=== PATIENT | male | born 1995 | race Hispanic/Latino ===

== ENCOUNTER 2019-12-10 20:07 | Emergency (ER) | payer OTHER, SELFPAY ==
[2019-12-10 20:13] VITALS: BP 124/59; PULSE 92; RESP 20; TEMP 36.8; O2SAT 99
--- NOTE | 2019-12-10 20:29 | ED_ITS ---
HPI - Fever <LUZ ELENA Shi - Last Filed: 12/10/19 21:28> General Chief Complaint: Fever Stated Complaint: fever, sore throat, short of breath Time Seen by Provider: 12/10/19 20:13 Source: patient Mode of arrival: Ambulatory History of Present Illness HPI Narrative: 24yo male presents to the walk-in clinic complaining of a sore throat starting 5 days ago, he then developed a dry cough with shortness of 3 da ys ago, and yesterday he developed a fever as high 101 F. he states today he woke up and his fever was 100.7F, he has taken some Tylenol which has helped. 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 He did have an episode of vomiting that started last night along with diarrhea. He took Imodium which has helped, he has been able to sip water and quita kleber. Patient denies any abdominal pain, rhinorrhea, dizziness, headaches, chest pain, any other concerns. He denies any asthma or any other comorbidities, patient denies allergies. Related Data Previous Rx's Medication Instructions Recorded ondansetron 4 mg PO Q8H #10 tab 12/10/19 Allergies Allergy/AdvReac Type Severity Reaction Status Date / Time No Known Drug Allergies Allergy Verified 12/10/19 20:31 Review of Systems <LUZ ELENA Shi - Last Filed: 12/10/19 21:28> Review of Systems Narrative: REVIEW OF SYSTEMS: GENERAL: Reports fevers, see HPI. HENT: No head trauma or hearing loss. EYES: No loss of vision, double vision, eye pain, irritation or discharge. CARDIOVASCULAR: No chest pain or syncope. RESPIRATORY: Reports dry cough, see HPI. GASTROINTESTINAL: Reports nausea and vomiting and diarrhea, see HPI. MUSCULOSKELETAL: No weakness or injury. INTEGUMENTARY: No rash, lesions, or pruritus. NEURO: No memory loss, or confusion. Patient History <LUZ ELENA Shi - Last Filed: 12/10/19 21:28> Medical History No significant medical problems (Acute) Social History Smoking Status: Never smoker Smoking Status: Never smoker Exam <LUZ ELENA Shi - Last Filed: 12/10/19 21:28> Initial Vital Signs Initial Vital Signs: Vital Signs Temperature 98.2 F 12/10/19 20:13 Pulse Rate 92 H 12/10/19 20:13 Respiratory Rate 20 12/10/19 20:13 Blood Pressure 124/59 L 12/10/19 20:13 Pulse Oximetry 99 12/10/19 20:13 PHYSICAL EXAMINATION: GENERAL: Well groomed, alert, and cooperative. Answers questions promptly and appropriately. Vital signs noted. HENT: Normocephalic, atraumatic. Ear canals patent. TMs intact without mucus or erythema. Oropharynx , slight erythema, no exudate Tonsils are not present. EYES: Conjunctiva pink, sclera white, no periorbital swelling. No discharge. CHEST: Normal to inspection and without deformities. CARDIOVASCULAR: S1 and S2 sounds normal. Regular rate and rhythm, no murmurs, clicks, or bruits. RESPIRATORY: Normal respiratory rate, trachea midline, airway patent. No stridor, nasal flaring or accessory muscle use. Able to speak in full sentences. Lungs are clear in all chin without wheeze, rhonchi, or crackles. Dry cough noted occasionally throughout examination. MUSCULOSKELETAL: Normal gait and coordination. Equal tone and mass bilaterally. ABD: Abdomen soft and nontender. No masses palpated. EXTREMITIES: Moves all extremities. SKIN: Warm, dry, soft, appropriate color for ethnicity. No lesions, rashes, or wounds to visualized areas. NEURO: Alert and Oriented X 3. Good coordination. No ataxia or cognitive issues. PSYCH: Appropriate affect and mood. <Roxy England DO - Last Filed: 12/11/19 05:33> Initial Vital Signs Initial Vital Signs: Vital Signs Temperature 98.2 F 12/10/19 20:13 Pulse Rate 92 H 12/10/19 20:13 Respiratory Rate 20 12/10/19 20:13 Blood Pressure 124/59 L 12/10/19 20:13 Pulse Oximetry 99 12/10/19 20:13 Course <LUZ ELENA Shi - Last Filed: 12/10/19 21:28> Course Course Narrative: Patient was given ondansetron, p.o. trial was initiated and patient was given ibuprofen. Patient was able to drink fluids without vomiting, states he feels better. Orders Ordered: Discontinued Medications Ibuprofen (Advil) 800 mg PO NOW ONE Stop: 12/10/19 20:23 Last Admin: 12/10/19 20:54 Dose: 800 mg Documented by: CTRAUSTIN Ondansetron HCl (Zofran Odt) 4 mg SL NOW ONE Stop: 12/10/19 20:23 Last Admin: 12/10/19 20:30 Dose: 4 mg Documented by: NEPTALI Ondansetron HCl (Zofran Odt) 4 mg SL NOW ONE Stop: 12/10/19 21:21 Ondansetron HCl (Zofran Odt Prepack) 1 bottle MISC SEEINSTR ONE Stop: 12/10/19 21:22 Last Admin: 12/10/19 21:31 Dose: 1 bottle Documented by: CTRAUSTIN Vital Signs Vital signs: Vital Signs - 8 hr 12/10/19 21:38 Temperature 99.2 F Pulse Rate 76 Respiratory Rate 20 Pulse Oximetry 99 <Roxy England DO - Last Filed: 12/11/19 05:33> Orders Ordered: Discontinued Medications Ibuprofen (Advil) 800 mg PO NOW ONE Stop: 12/10/19 20:23 Last Admin: 12/10/19 20:54 Dose: 800 mg Documented by: CTRAUSTIN Ondansetron HCl (Zofran Odt) 4 mg SL NOW ONE Stop: 12/10/19 20:23 Last Admin: 12/10/19 20:30 Dose: 4 mg Documented by: NEPTALI Ondansetron HCl (Zofran Odt) 4 mg SL NOW ONE Stop: 12/10/19 21:21 Ondansetron HCl (Zofran Odt Prepack) 1 bottle MISC SEEINSTR ONE Stop: 12/10/19 21:22 Last Admin: 12/10/19 21:31 Dose: 1 bottle Documented by: CTRAUSTIN Vital Signs Vital signs: Vital Signs - 8 hr 12/10/19 21:38 Temperature 99.2 F Pulse Rate 76 Respiratory Rate 20 Pulse Oximetry 99 MDM - Fever <LUZ ELENA Shi - Last Filed: 12/10/19 21:28> Medical Records Attestation: I reviewed the patient's medical records. Lab Data Attestation: I reviewed the patient's lab results. Labs: Lab Results 12/10/19 Range/Units 20:25 Influenza A (RT-PCR) Flu a negative (NEGATIVE) Influenza B (RT-PCR) Flu b negative (NEGATIVE) MDM Narrative Medical decision making narrative: 24-year-old male presenting to the emergency department for dry cough, fever, and shortness of breath. He is a dental hygienist. Influenza was negative, lung exam benign without adventitious lung sounds. Patient is at risk for COVID-19, as he works in healthcare symptom in symptom presentation, laboratory testing was sent. Less concern for acute abdominal etiology as patient reports resolution of nausea symptoms after ondansetron, was able to keep fluids, food, and ibuprofen down without vomiting in the emergency department for over an hour. Less concern for respiratory distress as patient has normal vital signs, is not hypoxic, and is able to talk in full sentences without significant distress. Patient was counseled extensively on self isolation and quarantine. Strict ED precautions given for new or worsening symptoms. Patient agrees to plan of care verbalized understanding. <Roxy England, - Last Filed: 12/11/19 05:33> Lab Data Attestation: I reviewed the patient's lab results. 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 Influenza was negative. Covid 19 testing was sent. Discharge Plan Departure Patient Disposition: Home Clinical Impression: Upper respiratory tract infection Qualifiers: URI type: unspecified viral URI Qualified Code(s): J06.9 - Acute upper respiratory infection, unspecified Discharge Date/Time: 12/10/19 21:38 Instructions: DI for Fever (Symptom) -- Adult Activity Restrictions/Additional Instructions: Thank you for entrusting me with your care today. As discussed, your influenza test was negative, your sample was sent for COVID-19 testing, this can take 4-5 days to result. Please remain in quarantine and self isolation for 10-14 days or until results if they are negative. Drink lots of fluids, take Tylenol and ibuprofen as needed for pain. If you develop any nasal congestion you may use decongestants and Mucinex. Return emergency department if he develops worsening symptoms such as severe shortness of breath that does not allow you to walk across the room without feeling winded, uncontrollable vomiting where you are not able to keep any fluids down, severe chest pain, or any other concerns. I prescribed you nausea medication, please take this as needed for nausea and vomiting. Prescriptions: New ondansetron 4 mg tablet,disintegrating 4 mg PO Q8H Qty: 10 RF: 0
[2019-12-10] MEDS: ONDANSETRON 4 MG ODT SL (20:30)
[2019-12-10 20:37] VITALS: BP 124/59; PULSE 94; RESP 16; O2SAT 99
[2019-12-10] MEDS: IBUPROFEN 400 MG TABLET 800 MG PO (20:54)
[2019-12-10 20:58] LABS: Influenza A - CEPHEID Flu A NEGATIVE (NEGATIVE); Influenza B - CEPHEID Flu B NEGATIVE (NEGATIVE)
--- NOTE | 2019-12-10 20:58 | PC.NURSE ---
Medicated with Zofran sl. Waited 15 min. Fluid challenge started@[id number] after taking Ibuprofen orally.
[2019-12-10 21:15] VITALS: BP 124/54; PULSE 71; RESP 16; TEMP 37.3; O2SAT 100
--- NOTE | 2019-12-10 21:27 | PC.NURSE ---
States feeling better with Zofran & Motrin.Keeping fluids down.VSS.
[2019-12-10] MEDS: ONDANSETRON 4 MG ODT PREPACK 1 BOTTLE MISC (21:31)
[2019-12-10 21:38] VITALS: PULSE 76; RESP 20; TEMP 37.3; O2SAT 99
[2019-12-20 10:58] LABS: COVID19 Sendout Not Detected (Not Detected)
== END 2019-12-10 21:38 | disposition home or self-care (01) ==
PROVIDERS: Emergency Provider Nurse Practitioner
DX: J06.9 Acute upper respiratory infection, unspecified (principal); R50.9 Fever, unspecified; R06.02 Shortness of breath
CPT/HCPCS: 87502; 87635; 99283